=== PATIENT | male | born 1990 | race Caucasian/White ===

== ENCOUNTER 2020-12-30 17:29 | Emergency (ER) | payer SELFPAY ==
[~2020-12-30] VITALS: Ht 172.7 cm; Wt 75.0 kg
[2020-12-30] MEDS ORDERED: ONDANSETRON HCL 4MG/2ML INJ IV STA (17:55)
[2020-12-30] MEDS ORDERED: MORPHINE SULFATE 4 MG/ML CPJ (NOT FOR IM USE) IV STA (17:55)
[2020-12-30] MEDS ORDERED: SODIUM CHLORIDE 0.9% 1,000 ML IV ONE (18:00)
[2020-12-30] MEDS ORDERED: MORPHINE SULFATE 10 MG/ML CPJ IV ONE (18:30)
[2020-12-30] MEDS ORDERED: LORAZEPAM 2MG/ML CPJ IV ONE (18:30)
[2020-12-30] MEDS ORDERED: T3 PO ×2 (19:48→19:49)
[2020-12-30 20:13] VITALS: BP 126/79
== END 2020-12-30 20:14 | disposition home or self-care (01) ==
LOC: ER 17:29
DX: S43.085A Other dislocation of left shoulder joint, initial encounter (principal); X58.XXXA Exposure to other specified factors, initial encounter; Y93.89 Activity, other specified; Y92.89 Other specified places as the place of occurrence of the external cause; Y99.8 Other external cause status; Z88.0 Allergy status to penicillin; Z88.6 Allergy status to analgesic agent
CPT/HCPCS: 23650; 73030; 96361; 96374; 96375; 96376; 99284; J2060; J2270; J2405; J7030; Z7610